=== PATIENT | male | born 1990 | race Caucasian/White ===

== ENCOUNTER 2018-08-27 16:50 | Emergency (ER) | payer OTHER ==
[2018-08-27] MEDS ORDERED: KETOROLAC TROMETHAMINE 60 MG/2 ML SDV IM ONE (17:40)
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
[2018-08-27 19:25] VITALS: BP 137/66
== END 2018-08-27 19:35 | disposition home or self-care (01) ==
LOC: ER 16:50
DX: S20.212A Contusion of left front wall of thorax, initial encounter (principal); S70.11XA Contusion of right thigh, initial encounter; S50.11XA Contusion of right forearm, initial encounter; M79.652 Pain in left thigh; R07.89 Other chest pain; V59.40XA Driver of pick-up truck or van injured in collision with unspecified motor vehicles in traffic accident, initial encounter; W22.11XA Striking against or struck by driver side automobile airbag, initial encounter; F17.210 Nicotine dependence, cigarettes, uncomplicated
CPT/HCPCS: 99406; 99283; 96372; 71101; J1885

== ENCOUNTER → 2020-12-02 | Outpatient (CLI) | payer OTHER ==
[~2020-12-02] MED LIST: COVID-19 VACCINE (PFIZER)/PF 30 MCG/0.3 ML VIAL IM ONE; EPINEPHRINE INJ/PF 1 MG/1 ML AMPULE IM PRN
== END ==
LOC: EMPHEALTH 10:40
PROVIDERS: ATTEND Internal Medicine
DX: Z23 Encounter for immunization (principal)
CPT/HCPCS: 91300